=== PATIENT | male | born 1950 | race Caucasian/White ===

== ENCOUNTER 2021-03-22 01:25 | Observation (INO) ==
[2021-03-22 02:15] LABS: Basophils # (auto) 0.02 K/uL (0-0.2); Basophils % (auto) 0.1 %; Eosinophils # (auto) 0.08 K/uL (0-0.5); Eosinophils % (auto) 0.6 %; Hemoglobin 16.3 g/dL (14.0-18.0); Immature Granulocytes # (auto) 0.03 K/uL (0.00-0.02); Immature Granulocytes % (auto) 0.2 %; Lymphocytes % (auto) 5.2 %; Mean Corpuscular Hemoglobin 32.3 pg (25-34); Mean Corpuscular Hgb Conc 34.7 g/dL (32-36); Mean Corpuscular Volume 93.3 fL (80-100); Mean Platelet Volume 9.4 fL (7.4-10.4); Monocytes # (auto) 0.47 K/uL (0.11-0.59); Monocytes % (auto) 3.5 %; Neutrophils # (auto) 12.14 K/uL (1.4-6.5); Neutrophils % (auto) 90.4 %; Platelet Count 167 K/uL (130-400); RDW Coefficient of Variation 13.3 % (11.5-14.5); RDW Standard Deviation 45.5 fL (36.4-46.3); Red Blood Count 5.04 M/uL (4.7-6.1); White Blood Count 13.44 K/uL (4.8-10.8)
[2021-03-22 02:44] LABS: Albumin Level 3.7 gm/dl (3.4-5.0); BUN Creatinine Ratio 18.9 (10-20); Calcium 8.6 mg/dl (8.5-10.1); Creatinine Clr Calc Pharmacy 68.1 ml/min; Est GFR (African American) 94.9 ml/min; Est GFR (Non-African American) 81.9 ml/min; Potassium 4.1 mmol/L (3.5-5.1)
[2021-03-22 02:46] LABS: Albumin Globulin Ratio 0.9 (0.9-2); Bilirubin,Total 0.4 mg/dl (0.2-1); Total Protein 7.7 gm/dl (6.4-8.2)
[2021-03-22] MEDS ORDERED: HYDROmorphone INJ 0.5 MG/0.5 ML SYR IV STA (03:05)
[2021-03-22] MEDS ORDERED: ONDANSETRON INJ 2 MG/ML 2 ML VIAL IV STA (03:05)
[2021-03-22 03:26] LABS: Appearance Urine Clear (Clear); Bilirubin Urine Negative (Negative); Blood Urine Negative (Negative); Color Urine Yellow; Glucose Urine UA Negative (Negative); Ketones Urine Trace (Negative); Leukocyte Esterase Urine Negative (Negative); Nitrite Urine Negative (Negative); Protein Urine Negative (Negative); Specific Gravity Urine 1.026 (1.000-1.030); Urobilinogen Urine Negative (Negative); pH Urine 5.5 (4.5-7.5)
--- NOTE | 2021-03-22 06:09 | Emergency Department Note ---
Impression & Plan Acute cholecystitis Patient will be evaluated by general surgery ED Provider Note NAME: IVELISSE RIVERA AGE: 70 SEX: M ARRIVES VIA: Walk-In INFORMANT: Patient and his ED PROVIDER(S): Lisa Scruggs DO CHIEF COMPLAINT: Midline abdominal pain PLAN: Disposition: Patient will be evaluated by general surgery Condition: Stable MEDICAL DECISION MAKING: This is a 70-year-old male patient who presents to the emergency department with midline abdominal pain that started around 6 PM. The patient has a known history of gallstones. Ultrasound shows evidence of a lodged gallstone in the gallbladder neck with signs of acute cholecystitis. The case was discussed with general surgery and they will evaluate. Triage Nursing notes reviewed and agree with them. Additional history obtained from his is at the bedside Prior medical records reviewed Vital Signs: reviewed and remarkable for hypertension Differential diagnosis: Cystitis, pancreatitis, cholecystitis, colitis, gastritis ER treatment provided: The Dilaudid IV Zofran IV normal saline solution Diagnostics interpreted by me: Cardiac Monitoring: Normal sinus rhythm at 79 Laboratory studies: See below Imaging studies: As per Stat Rad Ultrasound right upper quadrant: Liver measures 15.6 cm with normal echotexture. No focal liver lesion is seen. The portal vein is patent with normal directional flow. The common bile duct is nondilated measuring 6 mm. There is a 8 mm shadowing stone in the gallbladder neck. The gallbladder is distended but not dilated. The wall thickness is upper normal measuring 3 mm. There is a trace amount of pericholecystic fluid. The presence or absence of sonographic Kaminski's sign is not indicated. Cholecystitis is suspected. The right kidney appears unremarkable. No hydronephrosis is seen. HPI: 70/M arrives for evaluation of midline abdominal pain. Patient developed urinary frequency yesterday morning. Later in the afternoon, the patient began to develop some midline abdominal pain which he thought was related to gas. This was around 6 PM in the evening. Patient felt extremely cold. ROS: See above HPI for pertinent positives & negatives. A total of 10 systems reviewed and were otherwise negative. PAST MEDICAL HISTORY:See Below PAST SURGICAL HISTORY:See Below FAMILY HISTORY:See Below SOCIAL HISTORY:See Below HOME MEDICATIONS:See list ALLERGIES:See list VITALS:See Below PHYSICAL EXAMINATION: HEENT: Head - normocephalic and atraumatic Pupils are equal, round, and reactive to light. Extraocular eye muscles are intact, and sclera are anicteric. Nose - moist nasal mucosa without discharge. Mouth - moist buccal mucosa. Oropharynx is nonerythematous and there is no tonsillar exudate or edema noted. Neck: Supple; no JVD, nuchal rigidity, cervical lymphadenopathy, or auscultated bruits. Heart: Regular rate and rhythm. There is a normal S1 and S2 with no murmurs, clicks, or gallops appreciated. Lungs: Clear to auscultation bilaterally with no wheezes, rales, or rhonchi. Abdomen: Soft, moderate tenderness to palpation in the right upper quadrant of the abdomen and epigastrium. The rest of the abdomen is nondistended, with good bowel sounds. There are no palpable pulsatile masses or hepatosplenomegaly. There is no guarding, rigidity, or rebound noted. Extremities: No evidence of cyanosis, clubbing, or edema. There are easily palpable peripheral pulses. Skin: warm and dry with good turgor and no rashes. ED COURSE: Times/Reassessments: 0245: Patient was evaluated in room C6. A complete history and physical was performed. Laboratory studies were drawn as above. Patient was given 0.5 mg of IV Dilaudid and 4 mg of IV Zofran. The patient will go for ultrasound to rule out acute cholecystitis. Patient was started on IV normal saline drip Upon return from radiology, I reviewed the results of the laboratory studies, urinalysis and ultrasound. I discussed the case with general surgery and they will evaluate. Lisa Scruggs DO Past Med/Surg History Medical History (Updated 03/23/21 @ 16:33 by Lisa Scruggs DO) CAD (coronary artery disease) COPD (chronic obstructive pulmonary disease) Surgical History (Updated 03/23/21 @ 11:57 by Berta Khan RN) H/O angioplasty H/O hernia repair H/O surgical amputation of finger Hx laparoscopic cholecystectomy (03/22/21) Laparoscopic cholecystectomy, lysis of adhesions. Dr. Chow 03-22-2021 Family History Family/Other Emphysema of lung Heart disease Social History Smoking Status: Former smoker Age Started Using Tobacco: 26; Age Quit Using Tobacco: 56; packs per day: 1; Years Smoked: 30; Cigarettes Per Day: 20; Number of Years Since Quit: 13; Second Hand Exposure: No (Exposure to coal dust); Hx Alcohol Use: Yes Alcohol type: wine Hx Substance Use: No Preferred Language: Iraqi Communication Ability: Effective News Intern Required: No Beliefs That Will Affect Care: None Current Living Situation: Spouse Feels Safe at Home: Yes Assistive Devices: None Allergies Allergies Allergy/AdvReac Type Severity Reaction Status Date / Time Sulfa (Sulfonamide Allergy Rash Verified 03/22/21 02:17 Antibiotics) Home Meds Home Medications Medication Instructions Recorded Confirmed albuterol sulfate 90 mcg/actuation 1 puffs INH Q4H PRN gm 07/07/19 03/22/21 aerosol inhaler (ProAir HFA) tacrolimus 0.03 % topical ointment 1 appln TOP DAILY gm 07/07/19 03/22/21 umeclidinium 62.5 mcg-vilanterol 1 puffs INH DAILY 07/07/19 03/22/21 25 mcg/actuation powdr for inhalation (Anoro Ellipta) atorvastatin 80 mg tablet 80 mg PO DAILY 07/07/20 03/22/21 ezetimibe 10 mg tablet 10 mg PO DAILY 01/08/21 03/22/21 aspirin 81 mg tablet 81 mg PO DAILY 03/22/21 03/22/21 Previous Rx's Medication Instructions Recorded amoxicillin 875 mg-potassium 1 tab PO Q12H #10 tab 03/23/21 clavulanate 125 mg tablet (Augmentin) hydrocodone 5 mg-acetaminophen 325 1 - 2 tab PO .q4h- q6h PRN #15 tab 03/23/21 mg tablet Results & Data (ED) Vital Signs Vital Signs - 24 hr 03/22/21 01:31 03/22/21 03:18 03/22/21 06:32 Temperature 36.2 C L Temperature Source Temporal Artery Scan Pulse Rate 78 Pulse Rate [Finger] 85 79 Respiratory Rate 20 18 20 Respiratory Effort / Characteristics Non-Labored Spontaneous Non-Labored Spontaneous Non-Labored Spontaneous Respiratory Depth Normal Normal Normal Respiratory Pattern Regular Blood Pressure 156/75 H Blood Pressure [Right Arm] 160/70 H 127/60 Blood Pressure Mean 102 Blood Pressure Mean [Right Arm] 100 82 Pulse Oximetry 98 94 92 Oxygen Delivery Method Room Air Room Air Room Air Sepsis Recent Fever Within 48 Hours No Sepsis New/Unexplained Change in Mental Status No Sepsis Action Taken by Nursing No Action Required Laboratory Data Result diagrams: 03/23/21 05:20 03/23/21 05:20 Lab Results 03/22/21 03/22/21 03/22/21 Range/Units 02:03 02:06 03:20 WBC 13.44 H (4.8-10.8) K/uL RBC 5.04 (4.7-6.1) M/uL Hgb 16.3 (14.0-18.0) g/dL Hct 47.0 (42-52) % MCV 93.3 (80-100) fL MCH 32.3 (25-34) pg MCHC 34.7 (32-36) g/dL RDW Std Deviation 45.5 (36.4-46.3) fL RDW Coeff of Radha 13.3 (11.5-14.5) % Plt Count 167 (130-400) K/uL MPV 9.4 (7.4-10.4) fL Immature Gran % (Auto) 0.2 % Neut % (Auto) 90.4 % Lymph % (Auto) 5.2 % [place] % (Auto) 3.5 % Eos % (Auto) 0.6 % Baso % (Auto) 0.1 % Neut # (Auto) 12.14 H (1.4-6.5) K/uL Lymph # (Auto) 0.70 L (1.2-3.4) K/uL [place] # (Auto) 0.47 (0.11-0.59) K/uL Eos # (Auto) 0.08 (0-0.5) K/uL Baso # (Auto) 0.02 (0-0.2) K/uL Immature Gran # (Auto) 0.03 H (0.00-0.02) K/uL Sodium 137 (136-145) mmol/L Potassium 4.1 (3.5-5.1) mmol/L Chloride 105 (98-107) mmol/L Carbon Dioxide 30 (21-32) mmol/L Anion Gap 2.0 L (3-11) BUN 18 (7-18) mg/dl Creatinine 0.95 (0.6-1.4) mg/dl Est Cr Clr Drug Dosing 68.1 ml/min Est GFR ( Amer) 94.9 ml/min Est GFR (Non-Af Amer) 81.9 ml/min BUN/Creatinine Ratio 18.9 (10-20) Glucose 130 H (70-99) mg/dl Calcium 8.6 (8.5-10.1) mg/dl Total Bilirubin 0.4 (0.2-1) mg/dl AST 27 (15-37) U/L ALT 36 (12-78) U/L Alkaline Phosphatase 89 (45-117) U/L Total Protein 7.7 (6.4-8.2) gm/dl Albumin 3.7 (3.4-5.0) gm/dl Globulin 4.0 (2.5-4.0) gm/dl Albumin/Globulin Ratio 0.9 (0.9-2) Lipase 110 (73-393) U/L Urine Color Yellow Urine Appearance Clear (Clear) Urine pH 5.5 (4.5-7.5) Ur Specific [place] 1.026 (1.000-1.030) Urine Protein Negative (Negative) Urine Glucose (UA) Negative (Negative) Urine Ketones Trace H (Negative) Urine Blood Negative (Negative) Urine Nitrite Negative (Negative) Urine Bilirubin Negative (Negative) Urine Urobilinogen Negative (Negative) Ur Leukocyte Esterase Negative (Negative) COVID-19 Eval Order SARS-CoV-2 (PCR) (Negative) 03/22/21 03/22/21 Range/Units 06:54 06:54 WBC (4.8-10.8) K/uL RBC (4.7-6.1) M/uL Hgb (14.0-18.0) g/dL Hct (42-52) % MCV (80-100) fL MCH (25-34) pg MCHC (32-36) g/dL RDW Std Deviation (36.4-46.3) fL RDW Coeff of Radha (11.5-14.5) % Plt Count (130-400) K/uL MPV (7.4-10.4) fL Immature Gran % (Auto) % Neut % (Auto) % Lymph % (Auto) % [place] % (Auto) % Eos % (Auto) % Baso % (Auto) % Neut # (Auto) (1.4-6.5) K/uL Lymph # (Auto) (1.2-3.4) K/uL [place] # (Auto) (0.11-0.59) K/uL Eos # (Auto) (0-0.5) K/uL Baso # (Auto) (0-0.2) K/uL Immature Gran # (Auto) (0.00-0.02) K/uL Sodium (136-145) mmol/L Potassium (3.5-5.1) mmol/L Chloride (98-107) mmol/L Carbon Dioxide (21-32) mmol/L Anion Gap (3-11) BUN (7-18) mg/dl Creatinine (0.6-1.4) mg/dl Est Cr Clr Drug Dosing ml/min Est GFR ( Amer) ml/min Est GFR (Non-Af Amer) ml/min BUN/Creatinine Ratio (10-20) Glucose (70-99) mg/dl Calcium (8.5-10.1) mg/dl Total Bilirubin (0.2-1) mg/dl AST (15-37) U/L ALT (12-78) U/L Alkaline Phosphatase (45-117) U/L Total Protein (6.4-8.2) gm/dl Albumin (3.4-5.0) gm/dl Globulin (2.5-4.0) gm/dl Albumin/Globulin Ratio (0.9-2) Lipase (73-393) U/L Urine Color Urine Appearance (Clear) Urine pH (4.5-7.5) Ur Specific [place] (1.000-1.030) Urine Protein (Negative) Urine Glucose (UA) (Negative) Urine Ketones (Negative) Urine Blood (Negative) Urine Nitrite (Negative) Urine Bilirubin (Negative) Urine Urobilinogen (Negative) Ur Leukocyte Esterase (Negative) COVID-19 Eval Order Covid19 at [facility] SARS-CoV-2 (PCR) NEGATIVE (Negative) Administered Medications Discontinued Medications Aspirin (Aspirin 81 Mg Ectab) 81 mg PO DAILY ALEYDA Stop: 04/22/21 08:59 Last Admin: 03/23/21 08:43 Dose: 81 mg Documented by: [id number] Atorvastatin Calcium (Atorvastatin 40 Mg Tab) 80 mg PO DAILY ALEYDA Stop: 04/22/21 08:59 Last Admin: 03/23/21 08:43 Dose: 80 mg Documented by: [id number] Bupivacaine HCl (Bupivacaine 0.5 % 5 Mg/1 Ml Mpf 30ml Vial) Confirm Administered Dose 30 ml .ROUTE .STK-MED ONE Stop: 03/22/21 09:46 Last Admin: 03/22/21 11:05 Dose: 20 ml Documented by: [id number] Ezetimibe (Ezetimibe 10 Mg Tablet) 10 mg PO DAILY ALEYDA Stop: 04/22/21 08:59 Last Admin: 03/23/21 08:42 Dose: 10 mg Documented by: [id number] Heparin Sodium (Porcine) (Heparin Sod 5,000 Unit/0.5 Ml Vial) 5,000 units SQ Q12 ALEYDA Stop: 04/22/21 08:59 Last Admin: 03/23/21 08:43 Dose: 5,000 units Documented by: [id number] Hydromorphone HCl (Hydromorphone Inj 0.5 Mg/0.5 Ml Syr) 0.5 mg IV NOW STA Stop: 03/22/21 03:06 Last Admin: 03/22/21 03:14 Dose: 0.5 mg Documented by: [id number] Sodium Chloride (Nss) 500 mls @ 999 mls/hr IV .Q31M ONE Stop: 03/22/21 07:11 Last Infusion: 03/22/21 07:38 Dose: 0 mls/hr Documented by: [id number] Admin: 03/22/21 06:53 Dose: 999 mls/hr Documented by: [id number] Sodium Chloride (Nss) 500 mls @ 125 mls/hr IV .Q4H ALEYDA Stop: 04/21/21 06:44 Last Admin: 03/22/21 18:44 Dose: Not Given Documented by: [id number] Infusion: 03/22/21 16:50 Dose: 0 mls/hr Documented by: [id number] Admin: 03/22/21 07:38 Dose: 125 mls/hr Documented by: [id number] Cefoxitin Sodium (Mefoxin) 2,000 mg in 60 mls @ 100 mls/hr IV NOW ONE Stop: 03/22/21 08:05 Last Infusion: 03/22/21 16:57 Dose: 0 mls/hr Documented by: [id number] Admin: 03/22/21 07:54 Dose: 100 mls/hr Documented by: [id number] Acetaminophen (Ofirmev) 1,000 mg in 100 mls @ 400 mls/hr IV NOW ONE; Protocol Stop: 03/22/21 11:27 Last Infusion: 03/22/21 16:50 Dose: 0 mls/hr Documented by: [id number] Admin: 03/22/21 11:33 Dose: 400 mls/hr Documented by: [id number] Cefoxitin Sodium 1,000 mg/ (Dextrose) 60 mls @ 100 mls/hr IV Q6H ALEYDA Stop: 04/01/21 13:13 Last Admin: 03/23/21 07:50 Dose: 100 mls/hr Documented by: [id number] Infusion: 03/23/21 02:16 Dose: 0 mls/hr Documented by: [id number] Admin: 03/23/21 01:37 Dose: 100 mls/hr Documented by: [id number] Infusion: 03/22/21 20:34 Dose: 0 mls/hr Documented by: [id number] Admin: 03/22/21 19:30 Dose: 100 mls/hr Documented by: [id number] Infusion: 03/22/21 16:57 Dose: 0 mls/hr Documented by: [id number] Admin: 03/22/21 16:17 Dose: 100 mls/hr Documented by: [id number] Lactated Ringer's (Lr) 1,000 mls @ 50 mls/hr IV .Q20H ALEYDA Stop: 04/21/21 13:13 Last Admin: 03/22/21 18:54 Dose: Not Given Documented by: [id number] Miscellaneous ( Floseal Hemostatic Matrix 10ml) 10 ml TOP ONCE ONE Stop: 03/22/21 10:56 Last Admin: 03/22/21 11:03 Dose: 10 ml Documented by: [id number] Ondansetron HCl (Ondansetron Inj 2 Mg/Ml 2 Ml Vial) 4 mg IV NOW STA Stop: 03/22/21 03:06 Last Admin: 03/22/21 03:14 Dose: 4 mg Documented by: [id number] Umeclidinium/Vilanterol (Umeclidinium/Vilanterol 62.5/25mcg 7 Puffs/Inhaler) 1 puffs INH DAILY ALEYDA Stop: 04/22/21 08:59 Last Admin: 03/23/21 08:43 Dose: 1 puffs Documented by: [id number] Discharge Plan Visit Data Chief Complaint: Abdominal Pain Stated Complaint: SEVERE ABDOMINAL PAIN ED Provider: Lisa Scruggs Discharge Problem: Acute cholecystitis Patient Disposition: Admitted As Inpatient Discharge Instructions Interventions: ED Discharge Assessment Last Done: 03/22/21 09:59
[2021-03-22] MEDS ORDERED: SODIUM CHLORIDE 0.9% 500 ML IV ONE (06:41)
[2021-03-22] MEDS ORDERED: cefOXitin 2,000 MG/60 ML BAG IV ONE (07:30)
--- NOTE | 2021-03-22 07:32 | History & Physical Report ---
Date of Service March 22, 2021 Assessment & Plan (1) Acute cholecystitis: Plan: Plan is for laparoscopic cholecystectomy I did discuss this with the patient and his and we will try to proceed today We will give him some IV antibiotics and make him n.p.o. They agree with the plan History of Present Illness Chief Complaint: Abdominal pain Primary Care Provider: Donis Alex DO 70-year-old male presenting to the emergency room with epigastric abdominal pain and some nausea Work-up included an ultrasound showing gallstone in the neck of the gallbladder with the gallbladder distended and mildly thickened His liver function studies are normal, his white blood cell count is 13.4 Allergies Allergy/AdvReac Type Severity Reaction Status Date / Time Sulfa (Sulfonamide Allergy Rash Verified 03/22/21 02:17 Antibiotics) Home Medications Medication Instructions Recorded Confirmed Type albuterol sulfate 90 mcg/actuation 1 puffs INH Q4H PRN gm 07/07/19 03/22/21 History aerosol inhaler (ProAir HFA) tacrolimus 0.03 % topical ointment 1 appln TOP DAILY gm 07/07/19 03/22/21 History umeclidinium 62.5 mcg-vilanterol 1 puffs INH DAILY 07/07/19 03/22/21 History 25 mcg/actuation powdr for inhalation (Anoro Ellipta) atorvastatin 80 mg tablet 80 mg PO DAILY 07/07/20 03/22/21 History ezetimibe 10 mg tablet 10 mg PO DAILY 01/08/21 03/22/21 History Past Med/Surg History Medical History (Updated 03/22/21 @ 09:31 by Bari Roque MD) CAD (coronary artery disease) COPD (chronic obstructive pulmonary disease) Surgical History H/O angioplasty H/O hernia repair H/O surgical amputation of finger Family History Family/Other Emphysema of lung Heart disease Social History (Updated 07/07/19 @ 15:45 by Sharifa Trinidad) Smoking Status: Never smoker Age Started Using Tobacco: 26; Age Quit Using Tobacco: 56; packs per day: 1; Years Smoked: 30; Cigarettes Per Day: 20; Number of Years Since Quit: 13; Second Hand Exposure: No (Exposure to coal dust); Feels Safe at Home: Yes Review of Systems All systems reviewed & are unremarkable except as noted in HPI & below Physical Exam Physical Exam: Patient is awake and alert he is in no distress Constitutional: well developed and well nourished; no acute distress Eyes: + anicteric sclerae Respiratory: normal respiratory effort; no respiratory distress Cardiovascular: Rate/Rhythm: regular rate Gastrointestinal (Abdomen): Percussion/Palpation: abdomen soft He does have some tenderness in the upper abdomen to deep palpation Musculoskeletal: Gait: normal gait Skin: no rashes, warm and dry Neurologic: awake Psychiatric: Orientation: alert Results & Data ([facility]) Vital Signs (Past 12 Hours) Vital Signs Temp Pulse Pulse Resp BP BP Pulse Ox 03/22/21 06:32 79 20 127/60 92 03/22/21 03:18 85 18 160/70 H 94 03/22/21 01:31 36.2 C L 78 20 156/75 H 98 Laboratory Results I did review his laboratories Diagnostic Findings I did review his ultrasound
[2021-03-22] MEDS: SODIUM CHLORIDE 0.9% 500 ML IV SCH ×2 (07:38→18:44)
--- NOTE | 2021-03-22 08:38 | Ultrasound Report ---
US gallbladder CLINICAL HISTORY: ruq pain; h/o stones TECHNIQUE: Multiple real-time sonographic images of the right upper quadrant were obtained. Comparison: None available at the time of this dictation. FINDINGS: The liver is diffusely homogenous with normal contour and echogenicity. No focal mass lesions are se en. No intrahepatic ductal dilatation is seen. 8 mm stone is deep in the gallbladder neck. Perich olecystic fluid is seen. Echogenicity is anatomic tail artifact are seen along the anterior wall of t he gallbladder compatible with adenomyomatosis. Small layering stones versus adenomyomatosis are seen in the posterior wall. There is no pericholecystic fluid present. The common duct measures 0.6 cm in diameter at the level of the hepatic artery. Kaminski's sign cannot be assessed since the patient rec eived pain medication. The pancreas is not well visualized secondary to overlying bowel gas. The right kidney shows normal echogenicity, cortical thickness and renal contour. The right kidney sh ows no evidence of hydronephrosis or mass. No ascites or free fluid is seen in Arriaza's pouch. IMPRESSION: Multiple stones with pericholecystic fluid and borderline wall thickening at 3 mm. Findings may repre sent acute cholecystitis. ACT 112: Negative or not required by law. Electronically signed by: Denis Hernandez M.D. 03/22/2021 8:37 AM
--- NOTE | 2021-03-22 09:32 | Anesthesiology Consultation ---
Date of Service March 22, 2021 Assessment & Plan (1) Encounter for pre-operative examination: Chart Review Chart Review: Acceptable Risk for Surgery History Surgery Operation Date: 03/22/21 10:40 Proposed Procedures p Laparoscopic Cholecystectomy - Carlos Chow MD, FACS Height/Weight Height: 6 ft Weight: 64.7 kg Allergies Allergy/AdvReac Type Severity Reaction Status Date / Time Sulfa (Sulfonamide Allergy Rash Verified 03/22/21 02:17 Antibiotics) Medications Home Medications Medication Instructions Recorded Confirmed Last Taken albuterol sulfate 90 mcg/actuation 1 puffs INH Q4H PRN gm 07/07/19 03/22/21 Unknown aerosol inhaler (ProAir HFA) tacrolimus 0.03 % topical ointment 1 appln TOP DAILY gm 07/07/19 03/22/21 03/21/21 umeclidinium 62.5 mcg-vilanterol 1 puffs INH DAILY 07/07/19 03/22/21 03/21/21 25 mcg/actuation powdr for inhalation (Anoro Ellipta) atorvastatin 80 mg tablet 80 mg PO DAILY 07/07/20 03/22/21 03/21/21 ezetimibe 10 mg tablet 10 mg PO DAILY 01/08/21 03/22/21 03/21/21 Active Medications Generic Name Dose Route Start Last Admin Trade Name Freq PRN Reason Stop Dose Admin Sodium Chloride 500 mls @ 125 mls/hr 03/22/21 06:45 03/22/21 07:38 Nss IV 04/21/21 06:44 125 mls/hr .Q4H ALEYDA Administration NPO Date Last Intake of Fluids: 03/21/21 Time Last Intake of Fluids: 22:00 Date Last Intake of Solids: 03/21/21 Time Last Intake of Solids: 17:00 Past Medical History Medical History (Updated 03/22/21 @ 09:31 by Bari oRque MD) CAD (coronary artery disease) COPD (chronic obstructive pulmonary disease) Past Family History Family History Family/Other Emphysema of lung Heart disease Past Surgical History Surgical History H/O angioplasty H/O hernia repair H/O surgical amputation of finger Social History Smoking Status: Never smoker tobacco type: cigarettes Smoking cigarettes per day: 20 Physical Exam Vital Signs Last Vital Signs Temp 36.2 C L 03/22/21 01:31 Pulse 74 03/22/21 09:00 Resp 16 03/22/21 09:00 BP 126/57 L 03/22/21 09:00 Pulse Ox 96 03/22/21 09:00 Testing Laboratory Results 03/22/21 02:03 03/22/21 02:06 Urine Color Yellow 03/22/21 03:20 Urine Appearance Clear (Clear) 03/22/21 03:20 Urine pH 5.5 (4.5-7.5) 03/22/21 03:20 Ur Specific [place] 1.026 (1.000-1.030) 03/22/21 03:20 Urine Protein Negative (Negative) 03/22/21 03:20 Urine Glucose (UA) Negative (Negative) 03/22/21 03:20 Urine Ketones Trace (Negative) H 03/22/21 03:20 Urine Nitrite Negative (Negative) 03/22/21 03:20 Ur Leukocyte Esterase Negative (Negative) 03/22/21 03:20 Electrocardiogram Date: 03/22/21 Findings: + NSR @ (70)
[2021-03-22] MEDS ORDERED: DEXAMETHASONE SOD INJ 4 MG/ML VIAL ONE (09:34)
[2021-03-22] MEDS ORDERED: ONDANSETRON INJ 2 MG/ML 2 ML VIAL ONE (09:34)
[2021-03-22] MEDS ORDERED: fentaNYL citrate 100 MCG/2 ML VIAL ONE ×2 (09:34→10:49)
[2021-03-22] MEDS ORDERED: PROPOFOL IV EMULSION 10 MG/ML 20 ML VIAL IV ONE (09:34)
[2021-03-22] MEDS ORDERED: ROCURONIUM BROMIDE 10 MG/ML 5 ML VIAL IV ONE (09:34)
[2021-03-22] MEDS ORDERED: BUPIVACAINE 0.5 % 5 MG/1 ML MPF 30ML VIAL ONE (09:45)
[2021-03-22] MEDS ORDERED: KETOROLAC 30 MG/ML VIAL IV PRN (10:11)
[2021-03-22] MEDS ORDERED: PROMETHAZINE HCL 6.25 MG in SODIUM CHLORIDE 0.9% 50 ML IV PRN (10:11)
[2021-03-22] MEDS ORDERED: ONDANSETRON INJ 2 MG/ML 2 ML VIAL IV PRN ×2 (10:11→13:14)
[2021-03-22] MEDS ORDERED: ATROPINE SULFATE 0.1 MG/ML 10ML SYR IV PRN (10:11)
[2021-03-22] MEDS ORDERED: fentaNYL citrate 100 MCG/2 ML VIAL IV PRN (10:11)
[2021-03-22] MEDS ORDERED: NEOSTIGMINE METHYLSULFATE 1 MG/ML 10ML VIAL ONE (10:30)
[2021-03-22] MEDS ORDERED: GLYCOPYRROLATE 0.2 MG/ML VIAL ONE (10:30)
[2021-03-22] MEDS ORDERED: PHENYLEPHRINE 100MCG/ML 5ML SYR ONE (10:30)
[2021-03-22] MEDS ORDERED: ePHEDrine sulfate 50 MG/ML SYR ONE (10:30)
[2021-03-22] MEDS ORDERED: FLOSEAL HEMOSTATIC MATRIX 10ML TOP ONE (10:55)
[2021-03-22] MEDS ORDERED: ACETAMINOPHEN 1,000 MG/100 ML VIAL IV ONE (11:13)
--- NOTE | 2021-03-22 11:13 | Post Operative Brief Note ---
PG Immediate Post Op with CF Date of Surgery March 22, 2021 Pre & Post Diagnosis Operation Date: 03/22/21 10:40 Pre-Op Diagnosis: Acute Cholecystitis Post-Op Diagnosis: Acute Cholecystitis, necrotizing cholecystitis, chronic adhesions, chronic cholecystitis Gangrenous gallbladder I identified the patient and participated in the time-out.: Yes Procedure Operation Date: 03/22/21 10:40 Actual Procedures p Laparoscopic Cholecystectomy(Not Applicable) - Carlos Chow MD, FACS Surgeon Carlos Chow MD, FACS Photo Lab Technician Irvin Alfaro Estimated Blood Loss 20 Findings Consistent with Post-Op Diagnosis Patient had severe chronic dense adhesions consistent with chronic cholecystitis and also necrotizing cholecystitis Consistent with gangrenous cholecystitis Specimens Specimen Description: A. Gallbladder Drains Yadiel-Cuellar Drain (15 Fr round)
--- NOTE | 2021-03-22 11:44 | Operative Report (OR) ---
DATE OF OPERATION: 03/22/2021 NAME OF OPERATION: Laparoscopic cholecystectomy, lysis of adhesions. PREOPERATIVE DIAGNOSIS: Acute cholecystitis. POSTOPERATIVE DIAGNOSIS: Acute necrotizing cholecystitis with gangrenous gallbladder and severe flight operations manager kendrick adhesions with chronic cholecystitis. STAFF SURGEON: Carlos Chow MD. SUPPLY CHAIN VICE PRESIDENT: Bari Alfaro PA-C. ANESTHESIA: General. DESCRIPTION OF PROCEDURE: The patient was brought in the operating room and placed on the operating table in supine position. His abdomen was prepped and draped in the usual fashion. Pneumatic stocki ngs and orogastric tube were placed. 0.5% plain Marcaine was used to anesthetize all incisions. Inc ision was made above the umbilicus, carrying dissection down, placing a Veress needle producing pneum operitoneum, placing an 11 mm port at this level. Under visualization, the patient was placed in rev erse Trendelenburg position. Three 5 mm ports were placed, one cephalad and two laterally. The omen heavenly was severely adherent to the gallbladder, indicating chronic disease. This was taken down. The gallbladder was severely inflamed consistent with necrotizing gangrenous cholecystitis. The cammie ent had a stone in the neck of the gallbladder. Dissection was carried out to the eloina hepatis. Th e cystic duct avulsed away from the gallbladder. It was easily identified and clipped. The gallbladd er then was dissected away from the liver after clipping the cystic artery. The gallbladder was sever robin inflamed and also showed evidence of chronic cholecystitis. Gallbladder was placed in an Endobag . The patient did have some oozing, which was more than normal. However, this may be secondary to so me medications he has been taking. After appropriate hemostasis and irrigation, FloSeal was placed i nto the gallbladder bed. A 15 round Yadiel-Cuellar drain placed through the lateral 5 mm port site, secured using 3-0 nylon sut ure placed in the subhepatic space. At this point, all ports were removed. The gallbladder was meño nicanor through the umbilical site. I did have to spread the fascia slightly. There was a stone in the gallbladder. Fascia at the umbilicus closed using interrupted 0 PDS suture. The skin was reapproxim ated using subcuticular 4-0 Monocryl with Dermabond. The patient was transferred to recovery room in stable condition. My promotional advertising assistant helped with prepping, draping, removal of the gallbladder and closure of the wounds. Job ID: [id number]
--- NOTE | 2021-03-22 12:40 | Anesthesiology Progress Note ---
Date of Service March 22, 2021 Anesthesia Post Procedure Vital Signs Vital Signs: Temp Pulse Pulse Pulse Resp BP BP 03/22/21 12:25 71 18 120/54 L 03/22/21 12:15 37.2 C 78 18 119/58 L 03/22/21 12:05 71 19 127/61 03/22/21 11:55 77 18 110/45 L 03/22/21 11:45 79 19 118/48 L 03/22/21 11:35 83 20 130/70 03/22/21 11:27 37.1 C 85 21 157/76 H 03/22/21 10:04 37.2 C 77 18 143/56 H 03/22/21 09:59 74 16 124/61 03/22/21 09:00 74 16 126/57 L 03/22/21 07:32 74 16 127/67 03/22/21 06:32 79 20 127/60 03/22/21 03:18 85 18 160/70 H 03/22/21 01:31 36.2 C L 78 20 156/75 H Pulse Ox 03/22/21 12:25 94 03/22/21 12:15 94 03/22/21 12:05 94 03/22/21 11:55 96 03/22/21 11:45 94 03/22/21 11:35 98 03/22/21 11:27 96 03/22/21 10:04 93 03/22/21 09:59 96 03/22/21 09:00 96 03/22/21 07:32 94 03/22/21 06:32 92 03/22/21 03:18 94 03/22/21 01:31 98 Transfer of Care Handoff Completed per policy Notes Mental Status: alert / awake / arousable Patient Amnestic to Procedure: Yes Nausea / Vomiting: adequately controlled Pain: adequately controlled Airway Patency, RR, SpO2: stable & adequate BP & HR: stable & adequate Hydration State: stable & adequate Anesthetic Complications: no major complications apparent
[2021-03-22] MEDS ORDERED: LACTATED RINGER'S 1,000 ML IV SCH (13:14)
[2021-03-22] MEDS ORDERED: HYDROCODONE/ACETAMOPHEN 5/325MG TAB PO PRN ×2 (13:14)
[2021-03-22] MEDS ORDERED: HYDROmorphone INJ 0.5 MG/0.5 ML SYR IV PRN (13:14)
[2021-03-22] MEDS ORDERED: PROMETHAZINE HCL 12.5 MG in SODIUM CHLORIDE 0.9% 50 ML IV PRN (13:14)
--- NOTE | 2021-03-22 18:36 | Communication Note ---
Date of Service: March 22, 2021 Attending addendum. He is a 70-year-old male with significant past medical history of CAD, COPD underwent laparoscopic cholecystectomy today. He complains to have some abdominal discomfort without any nausea no vomiting and denies any other significant symptoms On examination No apparent distress at rest Hemodynamically stable Chestclear to auscultate bilaterally HeartS1-S2, regular Abdomensoft, evidence of recent laparoscopic cholecystectomy, tender and bowel sound present Extremitiesno edema His admission labs and imaging studies reviewed Acute cholecystitis status post laparoscopic cholecystectomy -Manage pain as per surgeon Medically stable with history of CAD and COPD Agree with assessment and plan as outlined by Norma Kothari
--- NOTE | 2021-03-22 18:53 | Hospitalist Consultation ---
Date of Consultation March 22, 2021 Assessment & Plan (1) Acute cholecystitis: (2) S/P laparoscopic cholecystectomy: -POD# [address] Dr[address] Chow for management of acute cholecystitis -Does not appear septic -Currently receiving IV cefoxitin -Diet, pain control per surgery (3) CAD (coronary artery disease): -Appears stable, no reports of chest pain -Continue ASA, statin, Zetia (4) COPD (chronic obstructive pulmonary disease): -No signs of acute exacerbation -Continue home inhalers (5) DVT prophylaxis: -SQ heparin as per general surgery Thank you for this consultation. We will follow the patient with you during their hospital stay. You can reach a member of the [facility] Hospitalist Team 02/12 via the [facility] Hospitalist role in [place] Text. Supervising Physician Co-Signing Physician Notes Date of Service: March 22, 2021 Attending addendum. He is a 70-year-old male with significant past medical history of CAD, COPD underwent laparoscopic cholecystectomy today. He complains to have some abdominal discomfort without any nausea no vomiting a nd denies any other significant symptoms On examination No apparent distress at rest Hemodynamically stable Chestclear to auscultate bilaterally HeartS1-S2, regular Abdomensoft, evidence of recent laparoscopic cholecystectomy, tender and bowel sound present Extremitiesno edema His admission labs and imaging studies reviewed Acute cholecystitis status post laparoscopic cholecystectomy -Manage pain as per surgeon Medically stable with history of CAD and COPD Agree with assessment and plan as outlined by Norma Kothari History of Present Illness Reason for Consultation: Postop medical management Requesting Physician: Dr. Chow Attending Physician: Dr. Kothari History of Present Illness 70-year-old male with PMH COPD, remote CT s/p RCA stenting, carotid stenosis, dyslipidemia, PMR, and other problems listed below who is status post laparoscopic cholecystectomy today by Dr. Chow. Patient presented to the ED today with reports of epigastric abdominal pain and nausea. Patient was found to have acute cholecystitis. Postoperatively, the patient is doing well. He reports his pain is well controlled. He denies chest pain or shortness of breath. No lightheadedness or dizziness. No nausea. He has not voided some surgery. Allergies Allergy/AdvReac Type Severity Reaction Status Date / Time Sulfa (Sulfonamide Allergy Rash Verified 03/22/21 02:17 Antibiotics) Home Medications Medication Instructions Recorded Confirmed Type albuterol sulfate 90 mcg/actuation 1 puffs INH Q4H PRN gm 07/07/19 03/22/21 History aerosol inhaler (ProAir HFA) tacrolimus 0.03 % topical ointment 1 appln TOP DAILY gm 07/07/19 03/22/21 History umeclidinium 62.5 mcg-vilanterol 1 puffs INH DAILY 07/07/19 03/22/21 History 25 mcg/actuation powdr for inhalation (Anoro Ellipta) atorvastatin 80 mg tablet 80 mg PO DAILY 07/07/20 03/22/21 History ezetimibe 10 mg tablet 10 mg PO DAILY 01/08/21 03/22/21 History aspirin 81 mg tablet 81 mg PO DAILY 03/22/21 03/22/21 History amoxicillin 875 mg-potassium 1 tab PO Q12H #10 tab 03/23/21 Rx clavulanate 125 mg tablet (Augmentin) hydrocodone 5 mg-acetaminophen 325 1 - 2 tab PO .q4h- q6h PRN #15 tab 03/23/21 Rx mg tablet Patient History Medical History CAD (coronary artery disease) COPD (chronic obstructive pulmonary disease) Surgical History H/O angioplasty H/O hernia repair H/O surgical amputation of finger Family History Family/Other Emphysema of lung Heart disease Social History Smoking Status: Former smoker Age Started Using Tobacco: 26; Age Quit Using Tobacco: 56; packs per day: 1; Years Smoked: 30; Cigarettes Per Day: 20; Number of Years Since Quit: 13; Second Hand Exposure: No (Exposure to coal dust); Do You Dip or Chew Tobacco: No; Hx Alcohol Use: Yes Alcohol type: wine Hx Substance Use: No Preferred Language: Croatian Communication Ability: Effective Warehouse Checker Required: No Beliefs That Will Affect Care: None Current Living Situation: Spouse Other Information That Helps Us Care for You: No Feels Safe at Home: Yes Safety Concerns: Feels Safe At This Time Assistive Devices: None Review of Systems Review of Systems: ROS per HPI, all other systems reviewed and negative Physical Exam Constitutional: WD/WN, vitals as above Eyes: PERRL, conjunctivae normal, anicteric sclerae ENMT: external ear and nose normal, oropharynx normal Respiratory: normal respiratory effort, lungs clear to auscultation Cardiovascular: Rate/Rhythm: regular rate and regular rhythm Vessels: normal peripheral pulses Extremities: no edema Gastrointestinal (Abdomen): normal bowel sounds, soft, nontender, no hepatosplenomegaly Laparoscopic incisions CDI, + drain in place Musculoskeletal: no cyanosis or clubbing, extremities motor strength 5/5 Skin: no rashes, warm and dry Neurologic: PERRL, EOMI, accommodation nl, no face palsy, no dysarthria Psychiatric: A+Ox3, euthymic affect Results & Data Results & Data ([facility]) Vital Signs (Past 12 Hours) Vital Signs Temp Pulse Pulse Pulse Resp BP BP 03/22/21 18:10 37.1 C 75 16 113/61 03/22/21 17:10 37.0 C 69 16 102/57 L 03/22/21 16:10 36.8 C 65 16 93/51 L 03/22/21 15:47 63 16 102/56 L 03/22/21 15:33 36.9 C 66 18 109/63 03/22/21 14:50 36.9 C 68 17 03/22/21 14:20 36.9 C 66 15 03/22/21 13:50 37 C 65 19 03/22/21 13:25 37.3 C 65 17 03/22/21 13:10 37.3 C 66 20 03/22/21 12:55 69 18 03/22/21 12:45 68 18 03/22/21 12:35 70 18 03/22/21 12:25 71 18 03/22/21 12:15 37.2 C 78 18 03/22/21 12:05 71 19 03/22/21 11:55 77 18 03/22/21 11:45 79 19 03/22/21 11:35 83 20 03/22/21 11:27 37.1 C 85 21 03/22/21 10:04 37.2 C 77 18 03/22/21 09:59 74 16 124/61 03/22/21 09:00 74 16 03/22/21 07:32 74 16 BP Pulse Ox 03/22/21 18:10 92 03/22/21 17:10 93 03/22/21 16:10 92 03/22/21 15:47 91 03/22/21 15:33 92 03/22/21 14:50 102/51 L 91 03/22/21 14:20 114/61 92 03/22/21 13:50 115/54 L 92 03/22/21 13:25 104/54 L 93 03/22/21 13:10 111/54 L 93 03/22/21 12:55 113/57 L 93 03/22/21 12:45 115/58 L 92 03/22/21 12:35 122/56 L 92 03/22/21 12:25 120/54 L 94 03/22/21 12:15 119/58 L 94 03/22/21 12:05 127/61 94 03/22/21 11:55 110/45 L 96 03/22/21 11:45 118/48 L 94 03/22/21 11:35 130/70 98 03/22/21 11:27 157/76 H 96 03/22/21 10:04 143/56 H 93 03/22/21 09:59 96 03/22/21 09:00 126/57 L 96 03/22/21 07:32 127/67 94 Laboratory Results Short CBC 03/22/21 Range/Units 02:03 WBC 13.44 H (4.8-10.8) K/uL Hgb 16.3 (14.0-18.0) g/dL Hct 47.0 (42-52) % Plt Count 167 (130-400) K/uL BMP 03/22/21 02:06 Sodium 137 Potassium 4.1 Chloride 105 Carbon Dioxide 30 BUN 18 Creatinine 0.95 Glucose 130 H Calcium 8.6 Liver Function 03/22/21 Range/Units 02:06 Total Bilirubin 0.4 (0.2-1) mg/dl AST 27 (15-37) U/L ALT 36 (12-78) U/L Alkaline Phosphatase 89 (45-117) U/L Albumin 3.7 (3.4-5.0) gm/dl Urine 03/22/21 Range/Units 03:20 Urine Color Yellow Urine Appearance Clear (Clear) Urine pH 5.5 (4.5-7.5) Ur Specific [place] 1.026 (1.000-1.030) Urine Protein Negative (Negative) Urine Glucose (UA) Negative (Negative) Diagnostic Findings Gallbladder Ultrasound 03/22/21 03:05 US gallbladder CLINICAL HISTORY: ruq pain; h/o stones TECHNIQUE: Multiple real-time sonographic images of the right upper quadrant were obtained. Comparison: None available at the time of this dictation. FINDINGS: The liver is diffusely homogenous with normal contour and echogenicity. No focal mass lesions are seen. No intrahepatic ductal dilatation is seen. 8 mm stone is deep in the gallbladder neck. Pericholecystic fluid is seen. Echogenicity is anatomic tail artifact are seen along the anterior wall of the gallbladder compatible with adenomyomatosis. Small layering stones versus adenomyomatosis are seen in the posterior wall. There is no pericholecystic fluid present. The common duct measures 0.6 cm in diameter at the level of the hepatic artery. Kaminski's sign cannot be assessed since the patient received pain medication. The pancreas is not well visualized secondary to overlying bowel gas. The right kidney shows normal echogenicity, cortical thickness and renal contour. The right kidney shows no evidence of hydronephrosis or mass. No ascites or free fluid is seen in Arriaza's pouch. IMPRESSION: Multiple stones with pericholecystic fluid and borderline wall thickening at 3 mm. Findings may represent acute cholecystitis. ACT 112: Negative or not required by law. Electronically signed by: Denis Hernandez M.D. 03/22/2021 8:37 AM
--- NOTE | 2021-03-22 23:07 | Electrocardiogram Report ---
Test Reason : Blood Pressure : / mmHG Vent. Rate : 076 BPM Atrial Rate : 076 BPM P-R Int : 168 ms QRS Dur : 086 ms QT Int : 386 ms P-R-T Axes : 084 079 072 degrees QTc Int : 434 ms Normal sinus rhythm Normal ECG No previous ECGs available Confirmed by Delvis Abreu ([id number]) on 03/22/2021 11:06:29 PM Referred By: REFERRED SELF Confirmed By:Delvis Abreu
[2021-03-23 06:10] LABS: Basophils # (auto) 0.01 K/uL (0-0.2); Basophils % (auto) 0.1 %; Eosinophils # (auto) 0.05 K/uL (0-0.5); Eosinophils % (auto) 0.6 %; Hematocrit (blood only) 37.1 % (42-52); Hemoglobin 12.4 g/dL (14.0-18.0); Immature Granulocytes # (auto) 0.01 K/uL (0.00-0.02); Immature Granulocytes % (auto) 0.1 %; Lymphocytes # (auto) 0.81 K/uL (1.2-3.4); Lymphocytes % (auto) 9.4 %; Mean Corpuscular Hemoglobin 31.4 pg (25-34); Mean Corpuscular Hgb Conc 33.4 g/dL (32-36); Mean Corpuscular Volume 93.9 fL (80-100); Mean Platelet Volume 9.6 fL (7.4-10.4); Monocytes % (auto) 5.8 %; Neutrophils # (auto) 7.24 K/uL (1.4-6.5); Platelet Count 138 K/uL (130-400); RDW Coefficient of Variation 13.6 % (11.5-14.5); RDW Standard Deviation 47.1 fL (36.4-46.3); Red Blood Count 3.95 M/uL (4.7-6.1); White Blood Count 8.62 K/uL (4.8-10.8)
[2021-03-23 06:15] LABS: Albumin Level 2.8 gm/dl (3.4-5.0); Bilirubin Direct 0.1 mg/dl (0-0.2); Calcium 8.6 mg/dl (8.5-10.1); Creatinine Clr Calc Pharmacy 62.2 ml/min; Est GFR (African American) 85.1 ml/min; Est GFR (Non-African American) 73.4 ml/min; Potassium 4.1 mmol/L (3.5-5.1)
[2021-03-23 06:17] LABS: Albumin Globulin Ratio 0.8 (0.9-2); Bilirubin,Total 0.4 mg/dl (0.2-1); Globulin 3.6 gm/dl (2.5-4.0); Total Protein 6.4 gm/dl (6.4-8.2)
--- NOTE | 2021-03-23 08:25 | Surgery Progress Note ---
Date of Service March 23, 2021 Assessment & Plan (1) S/P laparoscopic cholecystectomy: Plan: POD#1 lap nilsa Patient clinically doing well. WBC 8.6. Afebrile Tolerating a regular diet MONET serosang. Incisions c/d/i Will plan on discharge to home today with MONET drain in place. Will ask RN to perform MONET drain teaching prior to dispo Patient is to follow up in clinic on Friday03/26/21 for drain removal Will go home on 5 day course of augmentin Admission and Anticipated Discharge Date Admission Date: March 22, 2021 Subjective Patient is feeling well. Denies much pain or nausea/vomiting. Tolerating a regular diet. Physical Exam Physical Exam: awake/alert Gastrointestinal (Abdomen): Inspection/Auscultation: + abdominal surgical incision (c/d/i) and + abdominal surgical drain present (serosang output) Percussion/Palpation: abdomen soft; abdomen nontender Results & Data ([facility]) Vital Signs (Past 12 Hours) Vital Signs Temp Pulse Resp BP Pulse Ox 03/23/21 07:20 36.8 C 64 16 102/52 L 93 03/23/21 03:46 36.7 C 74 16 118/66 92 03/22/21 23:13 36.9 C 78 16 122/66 94 PG Care Time/CCT Total # of Minutes Spent Total Time Spent with Patient: Total time spent is greater than 50% in coordination of care (as documented) at patient's floor/unit and/or counseling patient: Coding Level of Care Code None Diagnoses S/P laparoscopic cholecystectomy Z90.49
[2021-03-23] MEDS ORDERED: HEPARIN SOD 5,000 UNIT/0.5 ML VIAL SQ SCH (09:00)
[2021-03-23] MEDS ORDERED: ASPIRIN 81 MG ECTAB PO SCH (09:00)
[2021-03-23] MEDS ORDERED: ATORVASTATIN 40 MG TAB PO SCH (09:00)
[2021-03-23] MEDS ORDERED: UMECLIDINIUM/VILANTEROL 62.5/25MCG 7 PUFFS/INHALER INH SCH (09:00)
[2021-03-23] MEDS ORDERED: EZETIMIBE 10 MG TABLET PO SCH (09:00)
--- NOTE | 2021-03-23 09:25 | Hospitalist Progress Note ---
Date of Service March 23, 2021 Assessment & Plan (1) Acute cholecystitis: (2) S/P laparoscopic cholecystectomy: Plan: -POD# [address] Chow for management of acute cholecystitis -Does not appear septic -Currently receiving IV cefoxitin -Diet, pain control per surgery, planning for discharge today (3) CAD (coronary artery disease): Plan: -Appears stable, no reports of chest pain -Continue ASA, statin, Zetia (4) COPD (chronic obstructive pulmonary disease): Plan: -No signs of acute exacerbation -Continue home inhalers (5) DVT prophylaxis: Plan: -SQ heparin as per general surgery Patient seen in collaboration with Dr. Kothari. Please see addendum. Thank you for this consultation. We will follow the patient with you during their hospital stay. You can reach a member of the [facility] Hospitalist Team 02/12 via the [facility] Hospitalist role in [place] Text. Admission and Anticipated Discharge Date Admission Date: March 22, 2021 Supervising Physician Co-Signing Physician Notes Attending addendum The patient was seen and examined in medical floor He is a status post laparoscopic cholecystectomy POD #1 Minimal discomfort in the abdomen but no other symptoms He will be discharged home by the primary team On examination No apparent distress at rest Hemodynamically stable Chestclear to auscultate bilaterally HeartS1-S2, regular Abdomensoft, evidence of recent laparoscopic cholecystectomy, tender and bowel sound present Extremitiesno edema His labs are reviewed Medically stable to be discharged Agree with assessment and plan as outlined above by JOAQUÍN Griggs Dr Subjective Seen and examined in 375-2. Feeling well. Denies much pain or nausea/vomiting. Tolerating a regular diet. Ambulating without issue. No fever, chills, headache, CP, SOB, dysuria or diarrhea. Review of Systems Review of Systems: At least ten systems reviewed and negative except as noted in the HPI. Physical Exam Physical Exam: Gen: WD/WN, NAD, sitting in bedside chair, A&Ox3 HEENT: Normocephalic, atraumatic, conjunctivae moist, sclerae anicteric, mucous membranes moist Lung: Clear to Auscultation bilaterally, no wheezes/rales/rhonchi Heart: Regular rate, regular rhythm, no murmurs, rubs, or gallops Abdomen: Soft, NT, ND, +laparoscopic incisions c/d/i, + MONET drain Extremities: no edema Skin: Warm, no rash Results & Data Results & Data ([facility]) Vital Signs (Past 12 Hours) Vital Signs Temp Pulse Resp BP Pulse Ox 03/23/21 07:20 36.8 C 64 16 102/52 L 93 03/23/21 03:46 36.7 C 74 16 118/66 92 03/22/21 23:13 36.9 C 78 16 122/66 94 Laboratory Results Short CBC 03/23/21 Range/Units 05:20 WBC 8.62 (4.8-10.8) K/uL Hgb 12.4 L D (14.0-18.0) g/dL Hct 37.1 L (42-52) % Plt Count 138 (130-400) K/uL BMP 03/23/21 05:20 Sodium 136 Potassium 4.1 Chloride 104 Carbon Dioxide 29 BUN 18 Creatinine 1.04 Glucose 97 Calcium 8.6 Liver Function 03/23/21 Range/Units 05:20 Total Bilirubin 0.4 (0.2-1) mg/dl Direct Bilirubin 0.1 (0-0.2) mg/dl AST 30 (15-37) U/L ALT 36 (12-78) U/L Alkaline Phosphatase 57 (45-117) U/L Albumin 2.8 L (3.4-5.0) gm/dl Diagnostic Findings Gallbladder Ultrasound 03/22/21 03:05 US gallbladder CLINICAL HISTORY: ruq pain; h/o stones TECHNIQUE: Multiple real-time sonographic images of the right upper quadrant were obtained. Comparison: None available at the time of this dictation. FINDINGS: The liver is diffusely homogenous with normal contour and echogenicity. No focal mass lesions are seen. No intrahepatic ductal dilatation is seen. 8 mm stone is deep in the gallbladder neck. Pericholecystic fluid is seen. Echogenicity is anatomic tail artifact are seen along the anterior wall of the gallbladder compatible with adenomyomatosis. Small layering stones versus adenomyomatosis are seen in the posterior wall. There is no pericholecystic fluid present. The common duct measures 0.6 cm in diameter at the level of the hepatic artery. Kaminski's sign cannot be assessed since the patient received pain medication. The pancreas is not well visualized secondary to overlying bowel gas. The right kidney shows normal echogenicity, cortical thickness and renal contour. The right kidney shows no evidence of hydronephrosis or mass. No ascites or free fluid is seen in Arriaza's pouch. IMPRESSION: Multiple stones with pericholecystic fluid and borderline wall thickening at 3 mm. Findings may represent acute cholecystitis. ACT 112: Negative or not required by law. Electronically signed by: Denis Hernandez M.D. 03/22/2021 8:37 AM
--- NOTE | 2021-03-23 10:32 | Discharge Summary ---
Date of Service March 23, 2021 Admission HPI Per Admitting Provider 70-year-old male presenting to the emergency room with epigastric abdominal pain and some nausea Work-up included an ultrasound showing gallstone in the neck of the gallbladder with the gallbladder distended and mildly thickened His liver function studies are normal, his white blood cell count is 13.4 Principal Diagnosis acute cholecystitis Discharge Exam awake/alert Gastrointestinal (Abdomen) Inspection/Auscultation: + abdominal surgical drain present (serosang); abdomen not distended Percussion/Palpation: abdomen soft; abdomen nontender Discharge Data Allergies Allergy/AdvReac Type Severity Reaction Status Date / Time Sulfa (Sulfonamide Allergy Rash Verified 03/22/21 02:17 Antibiotics) Consultations 03/22/21 06:41 ED Decision to Admit Stat 03/22/21 07:28 Consult Hospitalist Routine 03/22/21 13:14 Consult Hospitalist Routine Procedures Performed Operation Date: 03/22/21 10:40 Actual Procedures p Laparoscopic Cholecystectomy(Not Applicable) - Carlos Chow MD, FACS Ordered Studies 03/22/21 03:05 US gallbladder Urgent Hospital Course (1) Acute cholecystitis: This is a 70y M who presented to the [facility] ED on 03/22/21 with complaints of abdominal pain and nausea. Workup in the ER with a RUQ US revealed findings concerning for acute cholecystitis. WBC 13. Patient was taken to the OR on 03/22/[address] Chow and underwent a laparoscopic cholecystectomy. A MONET drain was left in place. The patient tolerated the procedure well, see op note for full details. Post op the patient was transferred to the med/sure unit in stable condition for ongoing observation. Patient's diet was advanced as tolerated and pain remained well controlled on prn medication. IV abx continued. On POD#1 patients pain continued to be controlled, diet tolerated, and wounds c/d/i. MONET drain serosang. RN performed MONET drain teaching with patient. He was deemed stable for discharge to home with plans to follow up in clinic on 03/26. He was given a prescription for pain meds and a course of augmentin to complete for 5 days. Patient expressed understanding and was discharged home on 03/23/21 in stable condition. (2) S/P laparoscopic cholecystectomy: Total Time Total Time Spent Total Time Spent (In Minutes): 10 Discharge Plan Discharge Items Patient Disposition: Home - Self-Care Reason For Visit: ACUTE CHOLECYSTITIS Discharge Diagnosis: laparoscopic cholecystectomy, acute and chronic cholecystitis Activity: Per Instructions section Activity Comment: light activity for 4 weeks Lifting: No more than 10 pounds Bathing Comment: may shower starting 03/23/21; no soaking in tubs/pools Sexual Activity: When tolerated Exercise/Sports: Wait until after follow-up appointment Exercise Comment: wait 4 weeks Non-emergency contact: Primary Care Provider and Surgeon Call non-emergency contact if: you have any medication questions, your symptoms worsen, your pain is not controlled, your pain is worsening, your pain is concerning for you, you have a fever, your temperature is above 101.5, your wound has increased redness, your wound has increased drainage and your wound pain has increased Follow-up/Referrals: Carlos Chow MD, FACS [Physician] - 03/29/21 8:45 am Donis Alex, DO [Primary Care Provider] - Diet: Regular Addtl Attending Provider Instructions: SPECIAL CARE INSTRUCTIONS: * Cover incisions and change daily for comfort/drainage. * Empty drain 2-3 times per day and record. * May use ibuprofen for pain as tolerated. * Expect some swelling and bruising. Call your doctor if: * Temperature above 101 degrees * Pain not relieved by pain medicine ordered * There is increased drainage or redness from any incision * You have any unanswered questions or concerns [phone]. FOLLOW UP VISIT: If not already scheduled, please call the office for a follow-up visit. For 03/26/2021 for drain removal OFFICE PHONE NUMBER: Dr. Chow Office Pending Studies at Discharge: Yes Studies:: surgical pathology Stand-Alone Forms: My [facility] Medications and DC Order Prescriptions: New amoxicillin-pot clavulanate [Augmentin] 875-125 mg tablet 1 tab PO Q12H Qty: 10 RF: 0 hydrocodone-acetaminophen 5-325 mg tablet 1 - 2 tab PO .q4h- q6h PRN (Reason: pain, for initial therapy, max 6 tabs per day ) Qty: 15 RF: 0 Continued ezetimibe 10 mg tablet 10 mg PO DAILY RF: 0 tacrolimus 0.03 % ointment 1 appln TOP DAILY RF: 0 Anoro Ellipta 62.5-25 mcg/actuation blister with device 1 puffs INH DAILY RF: 0 albuterol sulfate [ProAir HFA] 90 mcg/actuation HFA aerosol inhaler 1 puffs INH Q4H PRN (Reason: Shortness Of Breath) RF: 0 atorvastatin 80 mg tablet 80 mg PO DAILY RF: 0 aspirin 81 mg Tablet 81 mg PO DAILY RF: 0 Discharge Orders: Discharge Order (Routine); Ordered 03/23/21 Ordered By: Shantelle Scott Admission Data Admit Date/Time: 03/22/21 11:13 Attending Provider: Carlos Chow Admit Provider: Carlos Chow Primary Care Provider: Donis Alex Other Providers: Marie Andrew ; Jodi Moreno ; Karissa Kothari ; Payal Teague ; Norma Jean ; Anais Thacker ; Franny Meyer ; Roman Arias ; Binh Joya ; Darek Hernandez ; Juli Saldana ; Ava Melgar ; Yogesh Fernando ; Tierney Gonzalez ; Zuleyma Keys ; Keaton Lara ; Marianne Salinas ; Trupti Alvarez ; Gail Taylor ; Radha Benton I. ; Luis Antonio Giang ; Bree Selby ; Elias Shepherd ; Carlos Chow Other Interventions: Discharge Summary Assessment (RN) Last Done: 03/23/21 10:19 Coding Level of Care Code D/C DAY MANAGEMENT <30 MINS Diagnoses Acute cholecystitis K81.0 S/P laparoscopic cholecystectomy Z90.49
--- NOTE | 2021-03-26 14:14 | Communication Note ---
Date of Service: March 26, 2021 Code 44 attestation; Eleuterio Alarcon, 1950 with history of CAD, COPD was admitted with acute cholecystitis on 03/22/2021 and underwent laparoscopic cholecystectomy on the same day by the primary surgical team. He remained hemodynamically stable with unremarkable labs following surgery and was felt to be medically stable to be discharged on 03/23/2021. By CMS guidelines, a determination that the admission or continued stay is not medically necessary has been made by a member of the UR committee and a physician for this hospital stay, therefore a Code 44 will be completed and the Inpatient admission will be changed to outpatient. Dr Danica Kothari Member UR committee
== END 2021-03-23 11:19 | disposition home or self-care (01) ==
LOC: ED 01:25 → ASU 09:56 → PACUINP 11:13 → INTOOBSV 11:13 → 3N 15:11